=== PATIENT | female | born 1975 | race Caucasian/White ===

== ENCOUNTER → 2016-09-24 | Outpatient (CLI) | payer OTHER ==
[~2016-09-24] MED LIST: IBUPROFEN200 M1 PO
== END ==
LOC: COL.RAD 12:29
DX: M19.041 Primary osteoarthritis, right hand (principal); M65.841 Other synovitis and tenosynovitis, right hand
CPT/HCPCS: A9585

== ENCOUNTER → 2016-10-01 | Outpatient (CLI) | payer OTHER ==
[2016-10-01 16:19] LABS: ALBUMIN 4.3 gm/dL (3.5-5.0); ANION GAP 11 mmol/L (7-16); BLOOD UREA NITROGEN 23 mg/dL (7-17); CALCIUM 9.4 mg/dL (8.4-10.2); CARBON DIOXIDE 24 mmol/L (22-30); CHLORIDE 104 mmol/L (98-107); CREATININE, serum 0.72 mg/dL (0.52-1.25); GLUCOSE 87 mg/dL (74-106); POTASSIUM 4.2 mmol/L (3.4-5.0); SODIUM 138 mmol/L (137-145); URIC ACID 4.4 mg/dL (2.5-6.2)
[2016-10-01 16:20] LABS: C-REACTIVE PROTEIN < 0.5 mg/dL (0.0-0.9)
== END ==
LOC: COL.LAB 15:37
PROVIDERS: Orthopaedic Surgery
DX: M65.841 Other synovitis and tenosynovitis, right hand (principal)

== ENCOUNTER → 2020-12-06 | Outpatient (CLI) | payer BC | LOC: COL.RAD 11:34 | DX: D25.1 Intramural leiomyoma of uterus (principal) ==